=== PATIENT | male | born 1970 | race Caucasian/White ===

== ENCOUNTER 2016-10-30 09:11 | Emergency (ER) | payer OTHER ==
--- NOTE | 2016-10-30 10:19 | UCPHY ---
H & P Patient Type: Established Chief Complaint Nursing Narrative: C/o fever (high 102 F), RIOS, nonproductive cough x 4 days. Time Seen by Provider: 10/30/16 09:57 HPI/ROS: This patient presents with an illness that has been present for approximately 5 days during which time he self tested himself for influenza and strep both of which were negative. Symptoms include fever as high as 102 degrees 4 days ago but the fever persists and is associated with chills and feeling of itchiness and being flushed. Admits to bilateral ear pain, sore throat, minimal nasal congestion and mild cough Which is nonproductive. He has a mild headache and describes pain in his upper body but not particularly so in his neck or his back which is chronically painful. He has had nausea with diminished appetite and 2 days ago he vomited but has not vomited since. He denies abdominal pain and diarrhea. He denies any urinary tract symptoms and has had no rash. He feels intermittently spacey and at 1 time felt that he was hallucinating. At night sometimes he wakes up and feels that he is suffocating but he has not had actual shortness of breath otherwise. No recent travel. 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 REVIEW OF SYSTEMS: Constitutional: Fatigue, malaise, fever Eyes: No complaints ENT: Mild nasal congestion, sore throat, ear pain Respiratory: Nonproductive cough, occasional shortness of breath Cardiac: No actual chest pain Gastrointestinal: Diminished appetite, nausea, vomiting x1 2 days ago, no abdominal pain, no diarrhea Genitourinary: Denies frequency, urgency, dysuria Musculoskeletal: Upper torso pain denies neck pain Skin: No rash Neurological: Mild headache Source: Patient, RN notes reviewed Exam Limitations: No limitations - Personal History Current Tetanus Diphtheria and Acellular Pertussis (TDAP): Yes Tetanus Vaccine Date: within 10 years - Medical/Surgical History Hx Asthma: No Hx Chronic Respiratory Disease: No Hx Diabetes: No Hx Cardiac Disease: No Hx Renal Disease: No Hx Cirrhosis: No Hx Alcoholism: No Hx HIV/AIDS: No Hx Splenectomy or Spleen Trauma: No Other PMH: chronic back pain, HTN, ADHD, R ACL. high cholesterol - Family History Significant Family History: No pertinent family hx - Social History Smoking Status: Never smoked - Physical Exam Exam: GENERAL: Well-appearing, well-nourished and in no acute distress. This patient appears to be acutely ill but nontoxic HEAD: Atraumatic, normocephalic. EYES: Pupils equal round and reactive to light, extraocular movements intact, sclera anicteric, conjunctiva are normal. ENT: TMs normal, nares patent, the pharynx is injected but there is no exudate and no trismus. Moist mucous membranes. NECK: Normal range of motion, supple without lymphadenopathy or JVD. Nontender LUNGS: Breath sounds clear to auscultation bilaterally and equal. No wheezes rales or rhonchi. HEART: Regular rate and rhythm without murmurs, rubs or gallops. ABDOMEN: Soft, nontender, normoactive bowel sounds. No guarding, no rebound. No masses appreciated. EXTREMITIES: Normal range of motion, no pitting or edema. No clubbing or cyanosis. NEUROLOGICAL: Cranial nerves II through XII grossly intact. Normal speech, normal gait. PSYCH: Normal mood, normal affect. SKIN: Warm, dry, normal turgor, no visible rashes or lesions. Constitutional: Initial Vital Signs Temperature (C) 36.6 C 10/30/16 09:27 Heart Rate 92 10/30/16 09:27 Respiratory Rate 16 10/30/16 09:27 Blood Pressure 135/95 H 10/30/16 09:27 O2 Sat (%) 98 10/30/16 09:27 O2 Delivery Mode Room Air Allergies/Adverse Reactions: No Known Allergies Allergy (Verified 10/30/16 09:28) Home Medications: Medication Instructions Recorded Hydrochlorothiazide 04/28/15 Losartan Potassium 04/28/15 Adderall 10 MG (*) 06/07/16 Testosterone Cyp 06/07/16 Adderall 10 MG (*) 10/30/16 Bystolic 10/30/16 Oxycontin 10/30/16 Medical Decision Making - Diagnostics Imaging: A chest x-ray shows no evidence of pneumonia or any other serious abnormality. Differential Diagnosis: Tamiflu is not indicated given the duration of his illness. - Data Points Laboratory Results: Laboratory Results 10/30/16 10:25 10/30/16 10:25 10/30/16 10/30/16 10:25 10:20 WBC 3.25 L 10^3/uL (3.80-9.50) RBC 4.98 10^6/uL (4.40-6.38) Hgb 16.3 g/dL (13.7-17.5) Hct 46.9 % (40.0-51.0) MCV 94.2 fL (81.5-99.8) MCH 32.7 pg (27.9-34.1) MCHC 34.8 g/dL (32.4-36.7) RDW 11.9 % (11.5-15.2) Plt Count 190 10^3/uL (150-400) MPV 9.0 fL (8.7-11.7) Neut % (Auto) 49.0 % (39.3-74.2) Lymph % (Auto) 36.6 % (15.0-45.0) [place] % (Auto) 12.3 % (4.5-13.0) Eos % (Auto) 1.2 % (0.6-7.6) Baso % (Auto) 0.6 % (0.3-1.7) Nucleat RBC Rel Count 0.0 % (0.0-0.2) Absolute Neuts (auto) 1.59 L 10^3/uL (1.70-6.50) Absolute Lymphs (auto) 1.19 10^3/uL (1.00-3.00) Absolute Monos (auto) 0.40 10^3/uL (0.30-0.80) Absolute Eos (auto) 0.04 10^3/uL (0.03-0.40) Absolute Basos (auto) 0.02 10^3/uL (0.02-0.10) Absolute Nucleated RBC 0.00 10^3/uL (0-0.01) Immature Gran % 0.3 % (0.0-1.1) Immature Gran # 0.01 10^3/uL (0.00-0.10) Sodium 141 mEq/L (134-144) Potassium 4.3 mEq/L (3.5-5.2) Chloride 103 mEq/L (97-110) Carbon Dioxide 27 mEq/l (22-31) Anion Gap 11 mEq/L (8-16) BUN 9 mg/dL (7-23) Creatinine 0.9 mg/dL (0.7-1.3) Estimated GFR > 60 Glucose 98 mg/dL (70-100) Calcium 9.1 mg/dL (8.5-10.4) Total Bilirubin 0.6 mg/dL (0.1-1.4) AST 25 IU/L (17-59) ALT 41 IU/L (21-72) Alkaline Phosphatase 51 IU/L (38-126) Total Protein 6.8 g/dL (6.3-8.2) Albumin 3.8 g/dL (3.5-5.0) Influenza Typ A,B (DFA) POSITIVE FOR FLU A H (NEGATIVE) Departure - Departure Disposition: Home, Routine, Self-Care Clinical Impression: Influenza A Condition: Good Instructions: Influenza (ED) Additional Instructions: If your symptoms have not nearly resolved in 3 or 4 days you should be re- evaluated. Keep herself well hydrated but do not force herself to eat. limit your activities. Adult Pain & Fever Control: We recommend Acetaminophen (Tylenol) and Ibuprofen (Motrin, Advil) for pain and fever control. When fever is high or pain severe, both drugs can be used at the same time, but at different intervals. Please note the time differences. Your dose is: Acetaminophen [650]mg every 4 to 6 hours ibuprofen [600]mg every [6] hours with food OR naproxen Sodium (Aleve) [440]mg every 12 hours. Note: do not take Acetaminophen with Hydrocodone (Vicodin, Lortab) or Oxycodone (Percocet). These medications also contain Acetaminophen. No more than 3000 mg of Acetaminophen should be taken in 24 hours (for an adult) . The maximal dose of ibuprofen that it is safe in a 24-hour period is 2400 mg. You may take 400 mg every 4 hours, 600 mg every 6 hours or 800 mg every 8 hours safely. Referrals: Henrik Pendleton DO [Primary Care Provider] - As per Instructions - PQRS PQRS Measurement: Not applicable
[2016-10-30 10:31] LABS: % IMMATURE GRANULYOCYTES 0.3 % (0.0-1.1); ABSOLUTE IMMATURE GRANULOCYTES 0.01 10^3/uL (0.00-0.10); ADD DIFF? NO; ADD MORPH? NO; ADD SCAN? NO; ATYPICAL LYMPHOCYTE FLAG 30 (0-99); FRAGMENT RBC FLAG 0 (0-99); HEMATOCRIT 46.9 % (40.0-51.0); HEMOGLOBIN 16.3 g/dL (13.7-17.5); LEFT SHIFT FLG 0 (0-99); LIPEMIA HEMOLYSIS FLAG 90 (0-99); MEAN CELL HEMOGLOBIN 32.7 pg (27.9-34.1); MEAN CELL HEMOGLOBIN CONCENTR. 34.8 g/dL (32.4-36.7); MEAN CELL VOLUME 94.2 fL (81.5-99.8); PLATELET CLUMPS FLAG 0 (0-99); PLATELET COUNT 190 10^3/uL (150-400); RED BLOOD CELL COUNT 4.98 10^6/uL (4.40-6.38); RED CELL DISTRIBUTION WIDTH 11.9 % (11.5-15.2)
[2016-10-30 10:53] LABS: ALANINE AMINOTRANSFERASE 41 IU/L (21-72); ALBUMIN 3.8 g/dL (3.5-5.0); ALKALINE PHOSPHATASE 51 IU/L (38-126); ANION GAP 11 mEq/L (8-16); ASPARTATE AMINOTRANSFERASE 25 IU/L (17-59); BILIRUBIN,TOTAL 0.6 mg/dL (0.1-1.4); CALCIUM 9.1 mg/dL (8.5-10.4); CARBON DIOXIDE 27 mEq/l (22-31); CHLORIDE 103 mEq/L (97-110); CREATININE 0.9 mg/dL (0.7-1.3); GLOMERULAR FILTRATION RATE > 60; GLUCOSE 98 mg/dL (70-100); POTASSIUM 4.3 mEq/L (3.5-5.2); SODIUM 141 mEq/L (134-144); TOTAL PROTEIN 6.8 g/dL (6.3-8.2)
--- NOTE | 2016-10-30 11:02 | DX ---
PA and Lateral Chest History: Fever and cough for 5 days. Comparison: PA and lateral chest September 30, 2015. Findings: There is mild peribronchial thickening without focal consolidation. There is no pneumothora x or pleural effusion. The heart and pulmonary vasculature are normal. The bones are normal. Impression: Mild peribronchial thickening suggesting airways disease/bronchitis.
[2016-10-30 11:35] VITALS: BP 155/100; PULSE 86; RESP 18; TEMP 97.9; O2SAT 96
== END 2016-10-30 11:28 | disposition home or self-care (01) ==
LOC: CED 09:15
DX: J09.X2 Influenza due to identified novel influenza A virus with other respiratory manifestations (principal); I10 Essential (primary) hypertension
CPT/HCPCS: 71020-PO; 80053-PO; 85025-PO; 87400-PO; 99214-PO; G0463-PO

== ENCOUNTER 2016-11-08 08:15 | Day surgery (SDC) | payer OTHER ==
[2016-11-08] MEDS ORDERED: MIDAZOLAM 2 MG/2 ML VIAL ONE (09:00)
[2016-11-08] MEDS ORDERED: TRIAMCINOLONE ACETONIDE 40 MG/ML VIAL ONE (09:00)
[2016-11-08] MEDS ORDERED: DEXAMETHASONE 10 MG/ML VIAL ONE (09:00)
[2016-11-08] MEDS ORDERED: MIDAZOLAM 2 MG/2 ML VIAL IVP ONE (09:00)
[2016-11-08] MEDS ORDERED: NA BICARBONATE 50 MEQ/50 ML VIAL ONE (09:01)
[2016-11-08] MEDS ORDERED: BUPIVACAINE 0.25% 10 ML SDV ONE (09:01)
[2016-11-08] MEDS ORDERED: fentaNYL 100 MCG/2 ML INJ ONE (09:01)
[2016-11-08] MEDS ORDERED: LIDOCAINE 1% 30 ML SDV ONE (09:02)
[2016-11-08] MEDS ORDERED: IOPAMIDOL (ISOVUE-M 200) 20 ML VIAL IV ONE (09:02)
[2016-11-08] MEDS ORDERED: LR 1,000 ML IV SCH (09:30)
--- NOTE | 2016-11-08 15:54 | GPN ---
[f rep st] PROCEDURE NOTE DATE OF PROCEDURE: 11/08/2016 TIME: 9 a.m. HISTORY OF PRESENT ILLNESS: The patient presents for possible bilateral L4-5 transforaminal epidural injections. His last set of injections was done in June by Dr. Salde Lucas, and provided "meka culous" relief, including complete resolution of the pain that radiates into his testicle. Today, he would like to try bilateral injections. I have explained to him that this involves dividing the tot al steroid dose between the 2 sides. He understands and would like to proceed, and will use this inj ection to evaluate whether it is worth doing the left-sided injections in the future. His pain radia radha somewhat through to the left side, but is primarily right-sided. He is not taking any blood thin ners or antibiotics, and denies allergies to shellfish, latex, contrast dye, and iodine. PROCEDURE: Bilateral L4-5 transforaminal epidural steroid injections. DIAGNOSIS: Lumbar radiculopathy. SITE: Low back. PROVIDER: Rubi Arredondo MD. ANESTHESIA: Local with Versed 4 mg and fentanyl 100 mcg IV. COMPLICATIONS: None. ESTIMATED BLOOD LOSS: Minimal. PREPROCEDURE CONSENT: The preprocedure consent was obtained after the risks, benefits, and alternati ves of the procedure were explained to the patient. The risks include, but are not limited to, nerve injury, spinal cord injury, paralysis, brain injury, stroke, muscle injury, infection, adverse medic ation effects, bleeding, increased pain, , and any other unforeseen consequences. The patient a greed and signed the consent for the procedure. PROCEDURE VERIFICATION AND TIME-OUT: Verbal verification of patient, site, and procedure was done. All present were in agreement. Please see nursing notes for time of time-out. PROCEDURE NOTE: The patient was identified and placed in a prone position. Standard monitors were p ut in place. A right-sided oblique fluoroscopic view was obtained with the superior articular proces s of L5 aligned with the pedicle of L5. The skin over the intended target site at the 6 o'clock posi tion of the L4 pedicle was marked and prepped in the usual sterile fashion with ChloraPrep and a fene strated drape. Then, using sterile techniques, 2 mL of subcutaneous 1% lidocaine was instilled into the superficial soft tissue for local anesthesia over the above-stated region. The tip of the 22-gau ge 5-inch spinal needle was advanced toward the 6 o'clock position under intermittent biplanar fluoro scopic guidance toward the anterior epidural space of the right L4 foramen. Confirmation of proper n eedle position was made with AP oblique and lateral fluoroscopic views. After a negative aspiration for blood and cerebrospinal fluid, 0.5 mL of nonionic contrast dye was injected. Fluoroscopic imagin g revealed a clear outline of the L4 spinal nerve with proximal spread of agent through the neural fo ramen into the epidural space without vascular uptake. The patient did report a paresthesia concorda nt with his typical painful area. Subsequently, 3 mL of injectate, including 40 mg triamcinolone, 0. 5 mL of 1% lidocaine, and 1.5 mL of preservative-free normal saline was administered slowly after neg ative aspiration. The spinal needle was re-styletted and removed, and the paresthesia resolved. The exact same procedure was then repeated on the opposite side, and the patient again felt a transie nt paresthesia concordant with his painful area. Vital signs were stable throughout the procedure. The patient tolerated the procedure well and was m onitored in the recovery room with no apparent complications. He was discharged home in good conditi on with a ride. He experienced no effects from sedation and was instructed not to drive, operate [email or web address] machinery, or make any life-altering decisions today. He was instructed to call our clinic with n onurgent concerns or 911 in an emergency. In particular, he was taught that new weakness or numbness , changes in bowel or bladder control, fever, and swelling or redness over the injection site are all urgent concerns that would warrant call 911 or going to an emergency care facility. He verbalized u nderstand and was discharged home with postprocedure instructions. ASSESSMENT AND PLAN: Bilateral L4-L5 transforaminal epidural steroid injections done today without c omplications with the use of a 5-inch spinal needle. The patient will return to our clinic for follo wup, and we will consider repeating the injections in 3 months. /[id number]/MODL
--- NOTE | 2016-11-08 16:25 | DX ---
Fluoroscopy provided for lumbar spine injection 10:32 a.m. Indication: Pain. Guidance provided for epidural steroid injection. Fluoroscopy time: 135.3 seconds. Dose: 55.32 mGy Technique: Four intraoperative spot films were obtained. Findings: Bilateral L4-L5 levels were selectively injected. Impression: Fluoroscopy provided for epidural injection.
== END 2016-11-08 11:31 | disposition home or self-care (01) ==
LOC: FSGY 08:15
PROVIDERS: ATTEND Anesthesiology
PROC: 3E0S33Z Introduction of Anti-inflammatory into Epidural Space, Percutaneous Approach (ICD-10-PCS; principal; 2016-11-08 09:00)
PROC: 3E0S3BZ Introduction of Anesthetic Agent into Epidural Space, Percutaneous Approach (ICD-10-PCS; principal; 2016-11-08 09:00)
DX: M51.16 Intervertebral disc disorders with radiculopathy, lumbar region (principal); M53.3 Sacrococcygeal disorders, not elsewhere classified; F41.8 Other specified anxiety disorders; M79.1 Myalgia
CPT/HCPCS: J2250; J3010; J3301; Q9966

== ENCOUNTER → 2017-01-25 | Outpatient (CLI) | payer OTHER | LOC: CIMAGING 14:35 | PROVIDERS: ATTEND Clinical Nurse Specialist | DX: M51.36 Other intervertebral disc degeneration, lumbar region (principal) | CPT/HCPCS: 72100-PO ==

== ENCOUNTER → 2017-10-27 | Outpatient (CLI) | payer OTHER | LOC: FIMAGING 15:06 | PROVIDERS: ATTEND Physician Assistant Surgical | DX: M47.896 Other spondylosis, lumbar region (principal); M99.73 Connective tissue and disc stenosis of intervertebral foramina of lumbar region; M48.061 Spinal stenosis, lumbar region without neurogenic claudication ==

== ENCOUNTER 2018-02-26 09:19 | Inpatient (IN) | payer OTHER ==
[2018-02-26] MEDS ORDERED: ACETAMINOPHEN 500 MG TAB PO ONE (09:35)
[2018-02-26] MEDS ORDERED: ceFAZolin 2 GM/SWFI 2 GM/20 ML SYR IVP ONE (09:35)
[2018-02-26] MEDS ORDERED: morphINE SR 15 MG TAB PO ONE (09:35)
[2018-02-26] MEDS ORDERED: morphINE PF 0.2 MG in SYRINGE INTRATHECAL 1 SYR IT ONE (09:35)
[2018-02-26] MEDS ORDERED: GABAPENTIN 300 MG CAP PO ONE (09:35)
[2018-02-26] MEDS ORDERED: THROMBIN (BOVINE) 20,000 UNIT VIAL TP ONE (09:43)
[2018-02-26] MEDS ORDERED: CHLORHEXIDINE GLUC HIBICLENS 118 ML BTL TP ONE (09:43)
[2018-02-26] MEDS ORDERED: BACITRACIN 50,000 UNITS/10 ML SYR IRR ONE ×2 (09:44→14:41)
[2018-02-26] MEDS ORDERED: BUPIVACAINE 0.25% 30 ML SDV ONE (09:44)
[2018-02-26] MEDS ORDERED: EPINEPHrine 1 MG/ML INJ ONE (09:44)
[2018-02-26] MEDS ORDERED: LR 1,000 ML IV ONE (09:45)
--- NOTE | 2018-02-26 09:51 | PDANEPAE ---
ANE History of Present Illness 47 yo male with longstanding low back and leg pain for L 4/5 TLIF. ANE Past Medical History - Cardiovascular History Hx Hypertension: Yes Hx Arrhythmias: No Hx Chest Pain: No Hx Coronary Artery / Peripheral Vascular Disease: No Hx CHF / Valvular Disease: No Hx Palpitations: No Cardiovascular History Comment: HYPERLIPIDEMIA - well-controlled with meds - Pulmonary History Hx COPD: No Hx Asthma/Reactive Airway Disease: No Hx Recent Upper Respiratory Infection: No Hx Oxygen in Use at Home: No Hx Sleep Apnea: No Sleep Apnea Screening Result - Last Documented: Negative Pulmonary History Comment: exercise induced asthma - Neurologic History Hx Cerebrovascular Accident: No Hx Seizures: No Hx Dementia: No Neurologic History Comment: MIGRAINE HEADACHES OCCAS - Endocrine History Hx Diabetes: No Hypothyroid: No Hyperthyroid: No Obesity: moderate - Renal History Hx Renal Disorders: No - Liver History Hx Hepatic Disorders: No - Neurological & Psychiatric Hx Hx Neurological and Psychiatric Disorders: Yes Neurological / Psychiatric History Comment: ANXIETY, DDD lumbar,myofascial pain , ADHD - Cancer History Hx Cancer: No - Congenital Disorder History Hx Congenital Disorders: No - GI History Hx Gastrointestinal Disorders: No - Other Health History Other Health History: none - Chronic Pain History Chronic Pain: No - Surgical History Prior Surgeries: SHANTI -2015,R ACL 2007. TONSILLECTOMY. PILONIDAL CYST 2006. back injections, acl reconstruction ANE Review of Systems Review of Systems: - Exercise capacity METS (RN): 5 METS - Systems Muscolosketal: Reports: back pain, other (back pain now radiates into R testicle ) ANE Patient History - Allergies Allergies/Adverse Reactions: tapentadol [From Nucynta] Allergy (Verified 02/05/18 12:33) Itching - Home Medications Home Medications: Hydrochlorothiazide [HCTZ (*)] 25 mg PO DAILY 04/28/15 [Last Taken 06/27/16] Losartan Potassium [Cozaar 50 mg (*)] 50 mg PO DAILY 04/28/15 [Last Taken ] Testosterone IM [Testosterone 100mg/ml IM inj (*)] 250 mg IM Q14D 06/07/16 [ Last Taken 06/23/16] Amphet Asp and D/Amphet [Adderall 10 MG (*)] 10 mg PO TID@08,12,16 10/30/16 [ Last Taken Unknown] Nebivolol HCl [Bystolic 5 mg (*)] 5 mg PO DAILY 10/30/16 [Last Taken Unknown] oxyCODONE MYRISTATE [Xtampza ER] 18 mg PO BID 10/30/16 [Last Taken Unknown] valACYclovir [Valtrex (*)] 500 - 1,000 mg PO DAILY 11/07/16 [Last Taken Unknown] oxyCODONE IR [Oxycodone Ir (*)] 20 mg PO QID PRN 05/04/17 [Last Taken Unknown] Atorvastatin Calcium [Lipitor 40 mg (*)] 40 mg PO DAILY 02/05/18 [Last Taken Unknown] Cetirizine [ZyrTEC 10 mg (*)] 10 mg PO DAILY 02/05/18 [Last Taken Unknown] - NPO status NPO Since - Liquids (Time): 08:00 (sips of water with meds) - Anes Hx Anes Hx: no prior problems - Smoking Hx Smoking Status: Never smoked Marijuana use: Yes - Alcohol Use Alcohol Use: Occasionally - Family Anes Hx Family Anes Hx: neg - N/A Family Hx Anesthesia Complications: none ANE Labs/Vital Signs - Labs - CBC HGB: 17 HCT: 51 Platelet Count: 240 - Labs - BMP Sodium: 139 Potassium: 4.2 Glucose: 13 BUN: 1.1 Creatinine: 107 - Vital Signs Vital Signs: reviewed preoperatively; see RN documention for details Height: 187.96 cm Weight: 111.13 kg ANE Physical Exam - Airway Neck exam: FROM Mallampati Score: Class 2 Mouth exam: normal dental/mouth exam - Pulmonary Pulmonary: clear to auscultation - Cardiovascular Cardiovascular: regular rate and rhythym - ASA Status ASA Status: III ANE Anesthesia Plan Anesthesia Plan: general endotracheal anesthesia Lines/Monitors: additional IV
[2018-02-26] MEDS ORDERED: DIAZEPAM 10 MG TAB PO ONE (09:55)
[2018-02-26] MEDS ORDERED: DIAZEPAM 5 MG TAB ONE (10:13)
--- NOTE | 2018-02-26 10:15 | PDHPUP ---
History & Physical Update H&P update statement: This history and physical update is based on an assessment of the patient which was completed after admission or registration (within 24 hours), but prior to the surgery/procedure. H&P update: H&P reviewed & patient examined, no change in patient's condition since H&P completed (Consents signed and site marked. All questions answered.)
[2018-02-26] MEDS ORDERED: LIDOCAINE 2% 5 ML SDV ONE (10:56)
[2018-02-26] MEDS ORDERED: DEXAMETHASONE 4 MG/ML VIAL ONE (10:56)
[2018-02-26] MEDS ORDERED: ROCURONIUM 50 MG/5 ML VIAL ONE ×2 (10:56→11:45)
[2018-02-26] MEDS ORDERED: PROPOFOL/EMULSION 500 MG/50 ML BOTTLE IV ONE ×6 (10:56→14:41)
[2018-02-26] MEDS ORDERED: fentaNYL 100 MCG/2 ML INJ ONE ×4 (10:56→16:36)
[2018-02-26] MEDS: DEXMEDETOMIDINE HCL 400 MCG in NS 100 ML IV SCH ×3 (11:20→23:15)
[2018-02-26] MEDS ORDERED: ENALAPRILAT DIHYDRATE 1.25 MG/ML VIAL ONE (12:01)
[2018-02-26] MEDS ORDERED: ALBUMIN 5% 250 ML BOTTLE IV ONE ×2 (13:40→14:41)
[2018-02-26] MEDS ORDERED: morphINE PF 5 MG/10 ML INJ ONE (13:42)
[2018-02-26] MEDS ORDERED: THROMBIN (BOVINE) 5,000 UNIT VIAL TP ONE ×2 (13:45→14:40)
[2018-02-26] MEDS ORDERED: SURGIFLO MATRIX KIT WITH THROMBIN 8 ML TP ONE (13:56)
[2018-02-26] MEDS ORDERED: ceFAZolin 1 GM VIAL ONE (15:06)
[2018-02-26] MEDS ORDERED: ONDANSETRON 4 MG/2 ML VIAL IVP PRN (15:22)
[2018-02-26] MEDS ORDERED: DIAZEPAM 5 MG/ML 1 ML SYR IVP PRN (15:22)
[2018-02-26] MEDS ORDERED: NALOXONE HCL 0.4 MG/ML INJ IVP PRN (15:22)
[2018-02-26] MEDS ORDERED: fentaNYL 100 MCG/2 ML INJ IVP PRN (15:22)
[2018-02-26] MEDS ORDERED: ALBUTEROL 3 ML DEYVIAL IH PRN (15:22)
[2018-02-26] MEDS ORDERED: PROMETHAZINE HCL 25 MG/ML INJ IVP PRN (15:22)
[2018-02-26] MEDS ORDERED: LR 500 ML IV PRN (15:22)
[2018-02-26] MEDS ORDERED: BACITRACIN ZINC 14.2 GM OINTTUBE TP ONE (15:35)
[2018-02-26] MEDS ORDERED: oxyCODONE IR 5 MG TAB PO PRN (16:01)
[2018-02-26] MEDS ORDERED: POLYETHYLENE GLYCOL 3350 17 GM PKT PO PRN (16:03)
[2018-02-26] MEDS ORDERED: diphenhydrAMINE 25 MG CAP PO PRN (16:03)
[2018-02-26] MEDS ORDERED: PHARMACY PAIN CONSULT 1 EA MISC PRN (16:03)
[2018-02-26] MEDS ORDERED: BISACODYL 10 MG SUPP PR PRN (16:03)
[2018-02-26] MEDS ORDERED: NS W/ 20 KCl/L 1,000 ML IV SCH (16:15)
--- NOTE | 2018-02-26 16:17 | POSTOPPROG ---
Post Op Note Date of Operation: 02/26/18 Surgeon: Corrie Tomlin Car Pusher: Monika Tomlin PA-C Anesthesiologist: Ivy Anesthesia: GET(General Endotracheal) Pre-op Diagnosis: lumbar stenosis Post-op Diagnosis: same Indication: nerve compression Procedure: L3-5 laminectomy, L45 TLIF and L45 PSF Findings: nerve compression Inf/Abcess present in the surg proc area at time of surgery?: No Depth: Organ Space EBL: 500-1000 Complications: CSF leak repaired primarily Drains: Henri Malin Specimen(s): none PA Addendum - Addendum .: S: Pt in PACU, c/o RN of muscle spasm O: Sleeping but awakens to voice/stim NAD VSS MAEx4 Motor 5/5 BUE/BLE Incision dressed cdi JPx1 Bruno in A: 47 yo M s/p L3-5 laminectomy, L45 TLIF and L45 PSF P: CSF leak: Flat in bed, ok for 1 pillow under head, pillows under knees. No reverse trend. Raise HOB Sunday AM TEDs, SCDs, lovenox POD#1 Brace to be worn once he is OOB/ambulatory Post op xrays once ambulatory Check coags now and labs in AM - coags and hh look ok post op. Maintain bruno due to immobility TO SDU for precedex/pain control pharmacy pain cs ordered - home pain meds increased Call NS with any questions or neuro changes D/w Dr Abreu
[2018-02-26] MEDS ORDERED: NS 1,000 ML IV SCH (16:30)
--- NOTE | 2018-02-26 16:35 | GOP ---
[f rep st] OPERATIVE REPORT DATE OF OPERATION: 02/26/2018 SURGEON: Lee Abreu MD TELEVISION PRESENTER: Corrie Tomlin PA-C. PREOPERATIVE DIAGNOSIS: 1. L3-4 spinal stenosis with spondylosis. 2. L4-5 spondylolisthesis with severe spinal stenosis. 3. Bilateral foraminal stenosis. 4. Lower extremity radiculopathy. 5. Treatment refractory to nonoperative intervention. POSTOPERATIVE DIAGNOSIS: 1. L3-4 spinal stenosis with spondylosis. 2. L4-5 spondylolisthesis with severe spinal stenosis. 3. Bilateral foraminal stenosis. 4. Lower extremity radiculopathy. 5. Treatment refractory to nonoperative intervention. PROCEDURE PERFORMED: 1. Posterior arthrodesis with approach to L3, L4, and L5. 2. Decompressive laminectomy with bilateral medial facetectomies, L3-L4 and L4- L5. 3. Left L4-5 foraminotomy. 4. Right-sided L4-5 transforaminal lumbar interbody fusion with a 7 x 28 mm titanium PEEK cage filled with morselized autograft and allograft. 5. Posterolateral fusion bilaterally with pedicle screw placement L4 and L5 from the [employer] Solera 4.75 System. 6. Left-sided L4-5 posterior fusion with morselized autograft and allograft. 7. Use of intraoperative 3D Stealth navigation. 8. Use of intraoperative fluoroscopy, less than 1-our physician time. 9. Use of neuromonitoring. 10. Use of the operating microscope. 11. Injection of preservative-free intrathecal narcotics. COMPLICATIONS: A small dural tear was achieved at the L3-L4 site, which was repaired primarily with a 6-0 Prolene suture. FINDINGS: the dura was extremely adherent to the tissues SPECIMENS: None. INDICATIONS: The patient is a 47-year-old, who unfortunately suffered a long- standing history of low back pain with lower extremity radiculopathy and claudication. He eventually failed nonoperative management. After discussion of the risks, benefits, and treatment alternatives and after failing nonoperative intervention, we decided to proceed forth with surgery as described above. DESCRIPTION OF PROCEDURE: Patient brought to the operating theater, and underwent general endotracheal anesthesia without complications. The Venodynes , FARHEEN hose and appropriate lines placed by Anesthesia. He was flipped prone on the Henri table. All bony prominences were inspected and padded. The lower lumbar region was then prepped and draped in the usual sterile surgical fashion. A time-out was completed per protocol and the patient received antibiotics within 1-hour of incision. Using lateral fluoroscopy and a spinal needle, we picked our entry point at the L3 through L5 levels. This was marked in the midline. The incision was infiltrated with Marcaine with epinephrine and taken down with the scalpel blade. Using the monopolar, the incision was taken down the midline through the lumbodorsal fascia. A subperiosteal dissection was carried out to the transverse process bilaterally at L4 and L5. Care was taken to preserve the bilateral L3-4 facet joint. We also completed a subperiosteal dissection, bilaterally, to the medial facet joints of L3-L4. Deep retractors were placed to maintain our exposure. We confirmed our level using lateral fluoroscopy. We attached the 3D Stealth navigation clamp to the spinous process of L4 and completed a 3D Stealth navigation spin. Using 3D Stealth navigation, we placed the towboat pilot holes for the bilateral pedicle screws at L4 and L5. All holes were manually palpated with no evidence of any cortical breaches. We then tapped and placed 6.5 x 55 mm screws bilaterally in L4 and 6.5 x 50 mm screws bilaterally in L5 from the [employer] Solera 4.75 System. Another 3D Stealth navigation spin demonstrated good placement of the hardware. At this point, the microscope was brought into field to assist with microscopic dissection and maintain illumination and magnification using a combination of bur tip on the drill bit and Kerrison punch as well. We completed a decompressive laminectomy with bilateral medial facetectomies at L4- L5. The dura was noted to be extremely adherent to the epidural space including the ligamentous tissues. This took a long time, greater than 50% more challenging than the average surgery secondary to the patient's adherence and fibrotic nature of the tissues. We then completed L4-5 foraminotomy on the left side. We then moved up to the right-side of the L3-L4 site level. We started a right-sided L3-4 hemilaminotomy with a medial facetectomy and lateral recess decompression. The patient's tissues were noted to be extremely adherent to this level as well. While trying to tease them off, we achieved a dural tear. This extended across the midline and therefore I had to complete a full laminectomy at the L3-4 level to be able to close it primarily. I was then able to finally close this primarily with 6-0 Prolene suture in a running manner. It appeared to be water tight at that point. I then moved down to the right side L4-5 level. We completed an aggressive facetectomy. We distracted the L4-5 disk space and completed a right-sided L4-5 diskectomy. We prepared the cartilaginous plates and measured the interbody space. We then placed a 7 x 28 mm titanium PEEK elevate cage filled with morselized autograft and allograft anteriorly and toward the midline. We packed additional morcellized autograft in the disk space for interbody fusion. We let down the distraction and decorticated the left side between L4-5 for the posterolateral fusion. The wound was irrigated copiously with bacitracin irrigation. We placed 2- lordotic rods in the heads of the screws between L4 and L5 and secured them down with cap screws, which were tightened to the printed circuit board drafter's setting. A drain was left in the subfascial space. We injected preservative-free intrathecal narcotics. We placed morselized autograft, allograft on the left side between L4-5 for the posterolateral fusion. The wound was then closed in multiple layers of Vicryl sutures in the deep layers and a running nylon stitch for the skin. The patient's wounds were dressed sterilely. He was then flipped supine onto the transport cart, where he was still asleep at the time of this dictation. There were no other complications except for that as noted above. /[id number]/MODL MTDD
[2018-02-26] MEDS ORDERED: DIAZEPAM 5 MG/ML 1 ML SYR ONE (16:43)
[2018-02-26 16:52] LABS: INR 1.02 (0.83-1.16); PROTIME(PATIENT) 13.6 SEC (12.0-15.0)
--- NOTE | 2018-02-26 17:19 | POSTANESTH ---
Post Anesthetic Evaluation Cardiovascular Status: Normal, Stable Respiratory Status: Normal, Stable Level of Consciousness/Mental Status: Can Participate in Eval, Moderately Sleepy Pain Control: Adequate, Prn Tx Ordered Nausea/Vomiting Control: Adequate, Prn Tx Ordered Complications Possibly Related to Anesthesia: None Noted
[2018-02-26] MEDS: HYDROmorphONE/DILAUDID 1 MG/ML INJ IVP PRN ×2 (18:36→22:08)
[2018-02-26] MEDS: SENNOSIDES/DOCUSATE SODIUM TAB PO SCH (20:55)
[2018-02-26] MEDS: oxyCODONE IR 5 MG TAB PO PRN (20:56)
[2018-02-26] MEDS: ACETAMINOPHEN 500 MG TAB PO SCH (20:56)
[2018-02-26] MEDS: FAMOTIDINE 20 MG TAB PO SCH (20:57)
[2018-02-26] MEDS: METHOCARBAMOL 750 MG TAB PO PRN (20:57)
[2018-02-26] MEDS: POLYETHYLENE GLYCOL 3350 17 GM PKT PO SCH (21:02)
[2018-02-26] MEDS: Oxycodone Myristate [Xtampza Er] 18 MG PO SCH (21:02)
[2018-02-26] MEDS: ceFAZolin 2 GM in NS 100 ML IV SCH (21:53)
[2018-02-26] MEDS ORDERED: ceFAZolin 2 GM/DEXTROSE 100 ML IV SCH (22:00)
[2018-02-27] MEDS: oxyCODONE IR 5 MG TAB PO PRN ×2 (04:18→07:46)
[2018-02-27 05:08] LABS: PLATELET COUNT 187 10^3/uL (150-400)
[2018-02-27] MEDS: METHOCARBAMOL 750 MG TAB PO PRN (05:09)
[2018-02-27] MEDS: HYDROmorphONE/DILAUDID 1 MG/ML INJ IVP PRN ×3 (05:09→21:38)
[2018-02-27] MEDS: ACETAMINOPHEN 500 MG TAB PO SCH ×3 (05:09→20:44)
[2018-02-27 05:35] LABS: INR 1.03 (0.83-1.16); PROTIME(PATIENT) 13.7 SEC (12.0-15.0)
--- NOTE | 2018-02-27 05:41 | PDMN ---
Medical Necessity Medical necessity: Pt meets INPT criteria [place] [facility] [place] (L3 -5 laminectomy, L45 TLIF and L45 PSF; IPO surgery).
[2018-02-27] MEDS: DEXMEDETOMIDINE HCL 400 MCG in NS 100 ML IV SCH ×3 (06:11→16:43)
--- NOTE | 2018-02-27 06:59 | NEUSURGPN ---
Date of Surgery: 02/26/18 Post Op Day: 1 Assessment/Plan: Assessment: 47 yo M s/p L3-5 laminectomy, L4/5 TLIF and L4/5 PSF POD #1 Plan: -CSF leak: Flat in bed, ok for 1 pillow under head, pillows under knees. No reverse trend. Raise HOB Sunday AM -TEDs, SCDs, lovenox to start POD#1 -Brace to be worn once he is OOB/ambulatory -Post op xrays once ambulatory -follow labs-look good this am -Maintain bruno due to immobility -SDU for precedex/pain control -pharmacy pain cs ordered - home pain meds increased already -Call NS with any questions or neuro changes -D/w Dr Abreu Subjective: Awake and alert. NAD. Eating/drinking and voiding. No f/c/n/v/d. Objective: AAO x 3, PERRLA/EOMI no droop NAD, AFVSS MAEx4 Motor 5/5 BUE/BLE Incision dressed cdi JPx1 Bruno in Neuro Check Frequency: per routine Urinary Catheter in Place: Yes Urinary Catheter Indication: Other (Use Comment) (immobile with strict bed rest) Catheter Insertion Date: 02/26/18 - Physician Discussed Patient with Dr.: Abreu Neurosurgery Physical Exam - Vitals, I&O, Labs I and O 02/26/18 02/27/18 02/28/18 05:59 05:59 05:59 Intake Total 5050 871 Output Total 5605 285 Balance -555 586 Weight 111.13 kg Intake: Oral (ml) 1600 500 IV Intake (ml) 3450 IV Infused (ml) 371 Dexmedetomidine HCl 400 271 mcg In Ns 100 ml @ Per Protocol IV CONT AMINATA Rx#: [id number] ceFAZolin 2 gm In Ns 100 100 ml @ 200 mls/hr IV Q8H [facility] Rx#:[id number] Output: Urine (ml) 3800 250 Catheter 3800 250 Estimated Blood Loss (ml) 800 VANESSA Drain Output (ml) 1005 35 Back Henri Malin 1005 35 Other: Intake Quantity Yes Sufficient Vital Signs Temp Pulse Resp BP Pulse Ox 36.6 C 80 12 136/77 H 97 02/27/18 04:00 02/27/18 06:00 02/27/18 06:00 02/27/18 06:00 02/27/18 06:00 Laboratory Results 02/27/18 04:56 02/27/18 04:56 ICD10 Worksheet Patient Problems: Problems Problem Status Onset Arthrodesis status Acute Inadvertent durotomy Acute Lumbar radicular pain Acute Lumbar stenosis Acute - ICD10 Problem Qualifiers (1) Lumbar stenosis (2) Lumbar radicular pain (3) Arthrodesis status (4) Inadvertent durotomy
[2018-02-27] MEDS: ATORVASTATIN CALCIUM 40 MG TAB PO SCH (07:45)
[2018-02-27] MEDS: SENNOSIDES/DOCUSATE SODIUM TAB PO SCH ×2 (07:45→20:44)
[2018-02-27] MEDS: CETIRIZINE 10 MG TAB PO SCH (07:46)
[2018-02-27] MEDS: HYDROCHLOROTHIAZIDE 25 MG TAB PO SCH (07:47)
[2018-02-27] MEDS: LOSARTAN POTASSIUM 50 MG TAB PO SCH (07:47)
[2018-02-27] MEDS: FAMOTIDINE 20 MG TAB PO SCH ×2 (07:48→20:44)
[2018-02-27] MEDS: NEBIVOLOL HCL 5 MG TAB PO SCH (07:48)
[2018-02-27] MEDS ORDERED: ceFAZolin 2 GM in D5W 100 ML IV ONE (08:30)
[2018-02-27] MEDS: ceFAZolin 2 GM in NS 100 ML IV SCH (08:31)
[2018-02-27] MEDS: Oxycodone Myristate [Xtampza Er] 18 MG PO SCH (08:32)
[2018-02-27] MEDS: valACYclovir 500 MG TAB PO SCH (09:44)
[2018-02-27] MEDS: POLYETHYLENE GLYCOL 3350 17 GM PKT PO SCH ×3 (09:44→20:46)
--- NOTE | 2018-02-27 11:30 | ASMTCASEMG ---
Living Arrangements What is your living Answers: With Spouse arrangement? Who do you live with? Type Of Residence What kind of residence do Answers: House you live in? Discharge Plan Comments Coordination Status Comments Notes: Patient is a 47yo male who was admitted for L3/5 laminectomy, L4/5 TLIF and L4/5 PSF. 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 PT/OT evals ordered. D/C plan TBD. CM will follow. Date Signed: 02/27/2018 11:29 AM Electronically Signed By:Valentina Boateng LCSW
[2018-02-27] MEDS: METHOCARBAMOL 750 MG TAB PO SCH ×3 (11:35→20:44)
--- NOTE | 2018-02-27 12:42 | GCON ---
[f rep st] CONSULTATION CRITICAL CARE CONSULTATION DATE OF CONSULTATION: 02/27/2018 HISTORY OF PRESENT ILLNESS: This patient is a 47-year-old male with a history of lumbar degenerative disk disease, who was having difficulty with significant pain and underwent an L3 to 5 laminectomy w ith TLIF and posterior fusion without difficulty, though the case was complicated by a CSF leak. He has had considerable pain in the past and has very high pain tolerance, but is apparently well contro lled currently on a Precedex drip. REVIEW OF SYSTEMS: Otherwise negative. PAST MEDICAL HISTORY: Includes: 1. Hypertension. 2. Anxiety. 3. Hyperlipidemia. 4. Herpes simplex problem. PAST SURGICAL HISTORY: None. SOCIAL HISTORY: He is a nonsmoker. No significant alcohol. FAMILY HISTORY: Noncontributory. MEDICATIONS: Medications as an outpatient include Xanax, oxycodone, Xtampza, Adderall, atorvastatin, Bystolic, hydrochlorothiazide, losartan, testosterone, trazodone, valacyclovir. PHYSICAL EXAMINATION: VITAL SIGNS: Blood pressure was 136/77, pulse of 89, respirations 18, saturat ion of 98% on room air, and afebrile. GENERAL: He was awake and alert, in no apparent distress and able to speak in full sentences without using accessory muscles for breathing. He was obese. HEENT: Pupils were equally round and reactive to light. Nonicteric and noninjected. Mucous membranes are moist, without erythema or exudate. NECK: Supple, without adenopathy or jugular vein distention. LUNGS: Breath sounds were clear to auscultation bilaterally, without wheezes, rubs or rales. HEART: Regular rate and rhythm, without murmurs, rubs, or gallops. ABDOMEN: Bowel tones were hypoactive, but abdomen was otherwise soft, nondistended, and nontender. EXTREMITIES: No clubbing, cyanosis, o r edema. NEUROLOGICAL: Exam was nonfocal, cranial nerves and deep tendon reflexes. LABORATORY DATA: Includes white count 9.28, hematocrit 37.8, platelets 187. Normal basic metabolic panel. ASSESSMENT/PLAN: 1. Status post back surgery. Pain control seems to be well under control as long as he is on Preced ex. My anticipation is that his needs will diminish over time. No additional drugs are required, I believe. 2. Central spinal fluid leak. [facility]. Seems to be stable at this time. 3. Hypertension. His blood pressure is a little soft at the moment and will just have to watch that closely and then reorder his medications as needed. /[id number]/MODL
[2018-02-27] MEDS: oxyCODONE IR 15 MG TAB PO PRN ×2 (13:54→19:55)
[2018-02-27] MEDS: LACTULOSE 20 GM/30 ML UDCUP PO PRN (15:11)
[2018-02-27] MEDS: ENOXAPARIN 40 MG/0.4 ML SYR SC SCH (16:43)
[2018-02-27] MEDS: DEXMEDETOMIDINE HCL 1,000 MCG in NS 250 ML IV SCH (21:22)
[2018-02-27] MEDS: DIAZEPAM 5 MG TAB PO PRN (21:31)
[2018-02-27] MEDS: PROMETHAZINE HCL 25 MG/ML INJ IVP PRN (21:55)
[2018-02-28] MEDS: oxyCODONE IR 15 MG TAB PO PRN ×4 (01:40→20:13)
[2018-02-28] MEDS: HYDROmorphONE/DILAUDID 1 MG/ML INJ IVP PRN ×7 (01:41→19:15)
[2018-02-28] MEDS: DEXMEDETOMIDINE HCL 1,000 MCG in NS 250 ML IV SCH ×3 (04:06→20:32)
[2018-02-28] MEDS: DIAZEPAM 5 MG TAB PO PRN ×3 (04:09→18:25)
[2018-02-28] MEDS: ACETAMINOPHEN 500 MG TAB PO SCH ×3 (05:50→20:13)
[2018-02-28] MEDS: METHOCARBAMOL 750 MG TAB PO SCH ×4 (05:50→20:12)
--- NOTE | 2018-02-28 07:42 | NEUSURGPN ---
Assessment/Plan: Assessment: 47 yo M s/p L3-5 laminectomy, L4/5 TLIF and L4/5 PSF POD #2 Plan: -CSF leak: Flat in bed, ok for 1 pillow under head, pillows under knees. No reverse trend. Raise HOB Sunday AM -TEDs, SCDs, lovenox -Brace to be worn once he is OOB/ambulatory -Post op xrays once ambulatory -Maintain bruno due to immobility -SDU for precedex/pain control. Increased Oxycotin to 30mg bid and will alternate muscle relaxers, Robaxin and Valium every 4 hours as muscle spasms, seem to be increasing the pain -pharmacy pain cs ordered - home pain meds increased already -Call NS with any questions or neuro changes -D/w Dr Abreu Subjective: low back pain and spasms pain -06/17 Objective: AAO x MAEx4 Motor 5/5 BUE/BLE Incision dressed cdi JPx1 Bruno in Catheter Insertion Date: 02/26/18 - Physician Discussed Patient with : Brady Neurosurgery Physical Exam - Vitals, I&O, Labs I and O 02/27/18 02/28/18 03/01/18 05:59 05:59 05:59 Intake Total 5050 5460 Output Total 5602 8835 Balance -555 -3375 Weight 111.13 kg Intake: Oral (ml) 1600 4300 IV Intake (ml) 3450 IV Infused (ml) 1160 Dexmedetomidine HCl 400 860 mcg In Ns 100 ml @ Per Protocol IV CONT [facility]INATA Rx#: [id number] ceFAZolin 2 gm In Ns 100 300 ml @ 200 mls/hr IV Q8H [facility] Rx#:[id number] Output: Urine (ml) 3800 8500 Catheter 3800 8500 Estimated Blood Loss (ml) 800 VANESSA Drain Output (ml) 1005 335 Back Henri Malin 1005 335 Other: Intake Quantity Yes Sufficient Vital Signs Temp Pulse Resp BP Pulse Ox 36.6 C 75 22 H 156/90 H 100 02/28/18 03:46 02/28/18 03:46 02/28/18 03:46 02/28/18 03:46 02/28/18 03:46 Laboratory Results 02/27/18 04:56 02/27/18 17:45 ICD10 Worksheet Patient Problems: Problems Problem Status Onset Arthrodesis status Acute Inadvertent durotomy Acute Lumbar radicular pain Acute Lumbar stenosis Acute
[2018-02-28] MEDS: ATORVASTATIN CALCIUM 40 MG TAB PO SCH (08:28)
[2018-02-28] MEDS: NEBIVOLOL HCL 5 MG TAB PO SCH (08:28)
[2018-02-28] MEDS: oxyCODONE CR 30 MG TAB PO SCH ×2 (08:28→20:13)
[2018-02-28] MEDS: LOSARTAN POTASSIUM 50 MG TAB PO SCH (08:28)
[2018-02-28] MEDS: SENNOSIDES/DOCUSATE SODIUM TAB PO SCH ×2 (08:28→20:54)
[2018-02-28] MEDS: CETIRIZINE 10 MG TAB PO SCH (08:28)
[2018-02-28] MEDS: POLYETHYLENE GLYCOL 3350 17 GM PKT PO SCH ×3 (08:28→20:53)
[2018-02-28] MEDS: buPROPion XL 150 MG TAB PO SCH (08:29)
[2018-02-28] MEDS: FAMOTIDINE 20 MG TAB PO SCH ×2 (08:29→20:12)
[2018-02-28] MEDS: HYDROCHLOROTHIAZIDE 25 MG TAB PO SCH (08:29)
[2018-02-28] MEDS: ENOXAPARIN 40 MG/0.4 ML SYR SC SCH (08:29)
[2018-02-28] MEDS: valACYclovir 500 MG TAB PO SCH (08:38)
[2018-02-28] MEDS: MAGNESIUM HYDROXIDE 30 ML UDCUP PO PRN (09:49)
--- NOTE | 2018-02-28 15:19 | PDINTPN ---
Subscription Crew Leader Progress Note Assessment/Plan: Assessment/plan: 47 M with chronic lumbar stenosis and pain issues s/p L3-L5 laminectomy with TLIF/PSF complicated by CSF leak. He has remained stable postop, but has had difficulty with pain control given his long history of opiate tolerance. He also has a history of HTN and anxiety. * s/p back surgery with CSF leak. Will require supine position until sunday * pain control- robaxin and valium added to precedex and opiates today * constipation- started bowel protocol * anxiety- continue outpatient meds. Subjective: pain less-well controlled today after moving Objective: Vital Signs Temp Pulse Resp BP Pulse Ox 36.7 C 77 14 131/74 H 97 02/28/18 08:00 02/28/18 12:00 02/28/18 12:00 02/28/18 12:00 02/28/18 12:00 Laboratory Results 02/27/18 04:56 02/27/18 17:45 02/27/18 02/28/18 03/01/18 05:59 05:59 05:59 Intake Total 5050 5460 Output Total 5605 8835 45 Balance -555 -3375 -45 PT 13.7 SEC (12.0-15.0) 02/27/18 04:56 INR 1.03 (0.83-1.16) 02/27/18 04:56 Physical Exam - Physical Exam General Appearance: alert, no apparent distress, obese EENT: PERRL/EOMI Neck: supple Respiratory: lungs clear, normal breath sounds, No respiratory distress, No accessory muscle use Cardiac/Chest: regular rate, rhythm, No edema Abdomen: non-tender, soft, No normal bowel sounds, No distended Skin: normal color, warm/dry, No cyanosis Lymphatic: no adenopathy Extremities: No pedal edema Neuro/Psych: alert, normal mood/affect, oriented x 3 ICD10 Worksheet Patient Problems: Problems Problem Status Onset Arthrodesis status Acute Inadvertent durotomy Acute Lumbar radicular pain Acute Lumbar stenosis Acute
[2018-03-01] MEDS: DIAZEPAM 5 MG TAB PO PRN ×4 (00:37→20:28)
[2018-03-01] MEDS: oxyCODONE IR 15 MG TAB PO PRN ×4 (00:37→18:03)
[2018-03-01] MEDS: DEXMEDETOMIDINE HCL 1,000 MCG in NS 250 ML IV SCH ×2 (04:17→11:43)
[2018-03-01] MEDS: PROMETHAZINE HCL 25 MG/ML INJ IVP PRN (04:17)
[2018-03-01] MEDS: HYDROmorphONE/DILAUDID 1 MG/ML INJ IVP PRN ×3 (04:17→21:16)
[2018-03-01] MEDS: METHOCARBAMOL 750 MG TAB PO SCH ×4 (06:12→20:28)
[2018-03-01] MEDS: ACETAMINOPHEN 500 MG TAB PO SCH ×3 (06:13→21:27)
[2018-03-01] MEDS: SENNOSIDES/DOCUSATE SODIUM TAB PO SCH ×2 (07:59→20:28)
[2018-03-01] MEDS: ATORVASTATIN CALCIUM 40 MG TAB PO SCH (08:00)
[2018-03-01] MEDS: LOSARTAN POTASSIUM 50 MG TAB PO SCH (08:00)
[2018-03-01] MEDS: CETIRIZINE 10 MG TAB PO SCH (08:00)
[2018-03-01] MEDS: NEBIVOLOL HCL 5 MG TAB PO SCH (08:01)
[2018-03-01] MEDS: HYDROCHLOROTHIAZIDE 25 MG TAB PO SCH (08:01)
[2018-03-01] MEDS: buPROPion XL 150 MG TAB PO SCH (08:01)
[2018-03-01] MEDS: oxyCODONE CR 30 MG TAB PO SCH (08:02)
[2018-03-01] MEDS: FAMOTIDINE 20 MG TAB PO SCH ×2 (08:02→20:28)
[2018-03-01] MEDS: ENOXAPARIN 40 MG/0.4 ML SYR SC SCH (08:02)
[2018-03-01] MEDS: POLYETHYLENE GLYCOL 3350 17 GM PKT PO SCH ×3 (08:05→21:30)
--- NOTE | 2018-03-01 08:54 | NEUSURGPN ---
Assessment/Plan: Assessment: 47 yo M s/p L3-5 laminectomy, L4/5 TLIF and L4/5 PSF POD #2 Plan: -CSF leak: Flat in bed, ok for 1 pillow under head, pillows under knees. No reverse trend. Raise HOB Sunday AM -TEDs, SCDs, lovenox -Brace to be worn once he is OOB/ambulatory -Post op xrays once ambulatory -Maintain bruno due to immobility -Dc VANESSA drain -SDU for precedex/pain control. Increased Oxycotin to 40mg bid continue to alternate muscle relaxers, Robaxin and Valium every 4 hours as muscle spasms, seem to be increasing the pain -pharmacy pain cs ordered -Call NS with any questions or neuro changes -Seen with Dr Abreu Subjective: pain improved since yesterday, but still requiring precedex Objective: AAO x 4 MAEx4 Motor 5/5 BUE/BLE Incision dressed cdi, flat JPx1 Bruno in Catheter Insertion Date: 02/26/18 - Physician Patient Seen by : Brady Neurosurgery Physical Exam - Vitals, I&O, Labs I and O 02/28/18 03/01/18 03/02/18 05:59 05:59 05:59 Intake Total 5460 3298 Output Total 8835 5408 Balance -3375 -2110 Intake: Oral (ml) 4300 2500 IV Infused (ml) 1160 798 Dexmedetomidine HCl 1,000 392 mcg In Ns 250 ml @ Per Protocol IV CONT [facility] Rx#: [id number] Dexmedetomidine HCl 400 860 406 mcg In Ns 100 ml @ Per Protocol IV CONT AMINATA Rx#: [id number] ceFAZolin 2 gm In Ns 100 300 ml @ 200 mls/hr IV Q8H [facility] Rx#:[id number] Output: Urine (ml) 8500 5300 Catheter 8500 5300 VANESSA Drain Output (ml) 335 108 Back Henri Malin 335 108 Other: Intake Quantity Yes Sufficient Number of Stools Bedpan 1 Vital Signs Temp Pulse Resp BP Pulse Ox 36.8 C 78 14 133/66 H 94 03/01/18 08:00 03/01/18 08:00 03/01/18 08:00 03/01/18 08:00 03/01/18 08:00 Laboratory Results 02/27/18 04:56 02/27/18 17:45 ICD10 Worksheet Patient Problems: Problems Problem Status Onset Arthrodesis status Acute Inadvertent durotomy Acute Lumbar radicular pain Acute Lumbar stenosis Acute
[2018-03-01] MEDS: valACYclovir 500 MG TAB PO SCH (09:31)
--- NOTE | 2018-03-01 11:59 | PDINTPN ---
Sdc Teacher Progress Note Assessment/Plan: Assessment/plan: 47 M with chronic lumbar stenosis and pain issues s/p L3-L5 laminectomy with TLIF/PSF complicated by CSF leak. He has remained stable postop, but has had difficulty with pain control given his long history of opiate tolerance. He also has a history of HTN and anxiety. * s/p back surgery with CSF leak. Will require supine position until sunday * pain control- robaxin and valium added to precedex and opiates today. Pharmacy pain consult managing * constipation- started bowel protocol * anxiety- continue outpatient meds. 03/01/18 11:58 Subjective: No events. Reports better pain control today Objective: Vital Signs Temp Pulse Resp BP Pulse Ox 36.8 C 78 14 133/66 H 94 03/01/18 08:00 03/01/18 08:00 03/01/18 08:00 03/01/18 08:00 03/01/18 08:00 Laboratory Results 02/27/18 04:56 02/27/18 17:45 02/28/18 03/01/18 03/02/18 05:59 05:59 05:59 Intake Total 5460 3298 Output Total 8835 5408 Balance -3375 -2110 PT 13.7 SEC (12.0-15.0) 02/27/18 04:56 INR 1.03 (0.83-1.16) 02/27/18 04:56 Physical Exam - Physical Exam General Appearance: alert, no apparent distress, obese EENT: PERRL/EOMI Neck: supple Cardiac/Chest: regular rate, rhythm, No edema Abdomen: non-tender, soft, No distended Skin: normal color, warm/dry, No cyanosis Lymphatic: no adenopathy Extremities: No pedal edema Neuro/Psych: alert, normal mood/affect, oriented x 3 ICD10 Worksheet Patient Problems: Problems Problem Status Onset Arthrodesis status Acute Inadvertent durotomy Acute Lumbar radicular pain Acute Lumbar stenosis Acute
--- NOTE | 2018-03-01 14:40 | ASMTCMCOM ---
CM Note CM Note Notes: Patient has a dural tear and will have to lay flat until Sunday. Therapies will not be able to work with patient until next week. D/C plan TBD. CM will follow. Date Signed: 03/01/2018 02:39 PM Electronically Signed By:Valentina Boateng LCSW
[2018-03-02] MEDS: oxyCODONE IR 15 MG TAB PO PRN ×5 (00:21→20:39)
[2018-03-02] MEDS: DEXMEDETOMIDINE HCL 1,000 MCG in NS 250 ML IV SCH ×3 (01:35→21:39)
[2018-03-02] MEDS: HYDROmorphONE/DILAUDID 1 MG/ML INJ IVP PRN ×3 (04:36→17:51)
[2018-03-02] MEDS: METHOCARBAMOL 750 MG TAB PO SCH ×4 (05:57→20:38)
[2018-03-02] MEDS: ACETAMINOPHEN 500 MG TAB PO SCH ×3 (05:58→20:39)
[2018-03-02] MEDS: DIAZEPAM 5 MG TAB PO PRN ×2 (07:36→17:23)
[2018-03-02] MEDS: ATORVASTATIN CALCIUM 40 MG TAB PO SCH (08:28)
[2018-03-02] MEDS: HYDROCHLOROTHIAZIDE 25 MG TAB PO SCH (08:28)
[2018-03-02] MEDS: CETIRIZINE 10 MG TAB PO SCH (08:28)
[2018-03-02] MEDS: buPROPion XL 150 MG TAB PO SCH (08:28)
[2018-03-02] MEDS: FAMOTIDINE 20 MG TAB PO SCH ×2 (08:28→20:38)
[2018-03-02] MEDS: ENOXAPARIN 40 MG/0.4 ML SYR SC SCH (08:29)
[2018-03-02] MEDS: NEBIVOLOL HCL 5 MG TAB PO SCH (08:29)
[2018-03-02] MEDS: SENNOSIDES/DOCUSATE SODIUM TAB PO SCH ×2 (08:29→20:38)
[2018-03-02] MEDS: LOSARTAN POTASSIUM 50 MG TAB PO SCH (09:10)
--- NOTE | 2018-03-02 09:18 | SOAPPROG ---
SOAP Progress Note Assessment/Plan: Assessment: 47 yo M POD #4 L3-5 laminectomy complicated by csf leak Plan: neuro: stable and doing well overall HOB flat with bedrest until Sunday 03/04 scd/khris/lovenox for dvt prophylaxis please call with neuro changes discussed with Dr Campbell 03/02/18 09:16 Subjective: back pain improving, no leg pain, no weakness. Objective: Vital Signs Temp Pulse Resp BP Pulse Ox 36.7 C 78 16 109/55 L 99 03/02/18 07:33 03/02/18 08:29 03/02/18 07:33 03/02/18 08:29 03/02/18 07:33 Laboratory Results 02/27/18 04:56 02/27/18 17:45 03/01/18 03/02/18 03/03/18 05:59 05:59 05:59 Intake Total 3298 1563 Output Total 5408 3515 4000 Balance -2110 -1952 -4000 PT 13.7 SEC (12.0-15.0) 02/27/18 04:56 INR 1.03 (0.83-1.16) 02/27/18 04:56 AAOx4, +FC PERRL, EOMI, no facial droop 5/5 + light touch C/D/I ICD10 Worksheet Patient Problems: Problems Problem Status Onset Arthrodesis status Acute Inadvertent durotomy Acute Lumbar radicular pain Acute Lumbar stenosis Acute
[2018-03-02] MEDS: valACYclovir 500 MG TAB PO SCH (09:26)
[2018-03-02] MEDS: POLYETHYLENE GLYCOL 3350 17 GM PKT PO SCH ×3 (09:26→20:40)
--- NOTE | 2018-03-02 13:28 | PDINTPN ---
Child Welfare Consultant Progress Note Assessment/Plan: Assessment/plan: 47 M with chronic lumbar stenosis and pain issues s/p L3-L5 laminectomy with TLIF/PSF complicated by CSF leak. He has remained stable postop, but has had difficulty with pain control given his long history of opiate tolerance. He also has a history of HTN and anxiety. * s/p back surgery with CSF leak. Will require supine position until sunday * pain control- robaxin and valium added to precedex and opiates. Pharmacy pain consult managing with better control * constipation- started bowel protocol * anxiety- continue outpatient meds. Subjective: no events Objective: Vital Signs Temp Pulse Resp BP Pulse Ox 36.7 C 77 12 105/57 L 97 03/02/18 07:33 03/02/18 11:42 03/02/18 11:42 03/02/18 12:00 03/02/18 11:42 Laboratory Results 02/27/18 04:56 02/27/18 17:45 03/01/18 03/02/18 03/03/18 05:59 05:59 05:59 Intake Total 3298 1563 700 Output Total 5408 3515 4000 Balance -2110 -1952 -3300 PT 13.7 SEC (12.0-15.0) 02/27/18 04:56 INR 1.03 (0.83-1.16) 02/27/18 04:56 Physical Exam - Physical Exam General Appearance: alert, no apparent distress, obese EENT: PERRL/EOMI Neck: supple Respiratory: lungs clear, normal breath sounds, No respiratory distress, No accessory muscle use Cardiac/Chest: regular rate, rhythm, No edema Abdomen: non-tender, soft, No distended Skin: normal color, warm/dry, No cyanosis Lymphatic: no adenopathy Extremities: No pedal edema Neuro/Psych: alert, normal mood/affect, oriented x 3 ICD10 Worksheet Patient Problems: Problems Problem Status Onset Arthrodesis status Acute Inadvertent durotomy Acute Lumbar radicular pain Acute Lumbar stenosis Acute
[2018-03-02] MEDS: MAGNESIUM HYDROXIDE 30 ML UDCUP PO PRN (20:40)
[2018-03-02] MEDS: PROMETHAZINE HCL 25 MG/ML INJ IVP PRN (21:43)
[2018-03-03] MEDS: DEXMEDETOMIDINE HCL 1,000 MCG in NS 250 ML IV SCH ×2 (03:44→14:29)
[2018-03-03] MEDS: ACETAMINOPHEN 500 MG TAB PO SCH ×3 (05:30→22:22)
[2018-03-03] MEDS: METHOCARBAMOL 750 MG TAB PO SCH ×3 (05:30→16:33)
--- NOTE | 2018-03-03 06:45 | SOAPPROG ---
SOAP Progress Note Assessment/Plan: Assessment: 47 yo M POD #5 L3-5 laminectomy complicated by csf leak Plan: neuro: stable and doing well overall HOB flat with bedrest until Sunday 03/04 scd/khris/lovenox for dvt prophylaxis please call with neuro changes discussed with Dr Campbell 03/02/18 09:16 03/03/18 06:45 Subjective: no headaches, continued back pain. some pain in right groin Objective: Vital Signs Temp Pulse Resp BP Pulse Ox 37.6 C 72 16 101/54 L 92 03/02/18 19:57 03/03/18 05:37 03/03/18 03:44 03/03/18 03:44 03/03/18 03:44 Laboratory Results 02/27/18 04:56 02/27/18 17:45 03/02/18 03/03/18 03/04/18 05:59 05:59 05:59 Intake Total 1563 5139 Output Total 3515 47468 Balance -1951 -61 PT 13.7 SEC (12.0-15.0) 02/27/18 04:56 INR 1.03 (0.83-1.16) 02/27/18 04:56 AAOx4, +FC PERRL, EOMI, no facial droop GABRIELLA x 4 + light touch C/D/I ICD10 Worksheet Patient Problems: Problems Problem Status Onset Arthrodesis status Acute Inadvertent durotomy Acute Lumbar radicular pain Acute Lumbar stenosis Acute
[2018-03-03] MEDS: oxyCODONE IR 15 MG TAB PO PRN ×4 (07:40→20:33)
[2018-03-03] MEDS: DIAZEPAM 5 MG TAB PO PRN ×3 (07:40→22:22)
[2018-03-03] MEDS: HYDROmorphONE/DILAUDID 1 MG/ML INJ IVP PRN ×5 (09:01→22:22)
[2018-03-03] MEDS: ENOXAPARIN 40 MG/0.4 ML SYR SC SCH (09:03)
[2018-03-03] MEDS: SENNOSIDES/DOCUSATE SODIUM TAB PO SCH ×2 (09:03→20:33)
[2018-03-03] MEDS: ATORVASTATIN CALCIUM 40 MG TAB PO SCH (09:03)
[2018-03-03] MEDS: POLYETHYLENE GLYCOL 3350 17 GM PKT PO SCH ×3 (09:03→22:27)
[2018-03-03] MEDS: buPROPion XL 150 MG TAB PO SCH (09:04)
[2018-03-03] MEDS: FAMOTIDINE 20 MG TAB PO SCH ×2 (09:04→20:33)
[2018-03-03] MEDS: CETIRIZINE 10 MG TAB PO SCH (09:04)
[2018-03-03] MEDS: NEBIVOLOL HCL 5 MG TAB PO SCH (09:04)
[2018-03-03] MEDS: HYDROCHLOROTHIAZIDE 25 MG TAB PO SCH (09:04)
[2018-03-03] MEDS: valACYclovir 500 MG TAB PO SCH (09:07)
[2018-03-03] MEDS: LOSARTAN POTASSIUM 50 MG TAB PO SCH (11:41)
[2018-03-03] MEDS: LACTULOSE 20 GM/30 ML UDCUP PO PRN (15:20)
[2018-03-03] MEDS: METHOCARBAMOL 500 MG TAB PO SCH (20:30)
[2018-03-03] MEDS: ONDANSETRON 4 MG/2 ML VIAL IVP PRN (23:41)
[2018-03-04] MEDS: HYDROmorphONE/DILAUDID 1 MG/ML INJ IVP PRN ×8 (00:28→23:21)
[2018-03-04] MEDS: oxyCODONE IR 15 MG TAB PO PRN ×2 (00:28→20:12)
[2018-03-04] MEDS: ONDANSETRON 4 MG/2 ML VIAL IVP PRN ×4 (03:56→16:08)
[2018-03-04] MEDS: DEXMEDETOMIDINE HCL 1,000 MCG in NS 250 ML IV SCH ×2 (04:54→23:21)
[2018-03-04] MEDS: PROMETHAZINE HCL 25 MG/ML INJ IVP PRN ×2 (05:06→23:21)
[2018-03-04] MEDS: METHOCARBAMOL 500 MG TAB PO SCH ×4 (05:09→21:35)
[2018-03-04] MEDS: ACETAMINOPHEN 500 MG TAB PO SCH ×3 (06:00→21:36)
--- NOTE | 2018-03-04 10:58 | SOAPPROG ---
SOAP Progress Note Assessment/Plan: Assessment: 47 yo M POD #5 L3-5 laminectomy complicated by csf leak Plan: neuro: was doing well yesterday, worsening back pain and headaches. patient has headaches when flat with chills. Will re try advancing activity and will check CBC, BMP continue to advance activity as tolerated some problems urinating this am, will check PVR scd/khris/lovenox for dvt prophylaxis please call with neuro changes discussed with Dr Campbell 03/02/18 09:16 03/03/18 06:45 03/04/18 10:56 Subjective: horrible headache this am, back spasms worse with sitting, minimal leg pain Objective: Vital Signs Temp Pulse Resp BP Pulse Ox 37.2 C 79 12 111/75 93 03/04/18 07:47 03/04/18 07:47 03/04/18 07:47 03/04/18 07:47 03/04/18 07:47 Laboratory Results 02/27/18 04:56 02/27/18 17:45 03/03/18 03/04/18 03/05/18 05:59 05:59 05:59 Intake Total 5139 4996 Output Total 49890 3075 Balance -6161 1921 PT 13.7 SEC (12.0-15.0) 02/27/18 04:56 INR 1.03 (0.83-1.16) 02/27/18 04:56 AAOx4, +FC PERRL, EOMI 5/5 + light touch C/D/I ICD10 Worksheet Patient Problems: Problems Problem Status Onset Arthrodesis status Acute Inadvertent durotomy Acute Lumbar radicular pain Acute Lumbar stenosis Acute
[2018-03-04] MEDS ORDERED: HYDROmorphONE/DILAUDID 1 MG/ML INJ IVP ONE (11:00)
--- NOTE | 2018-03-04 11:07 | PDINTPN ---
[employer] Worker Progress Note Assessment/Plan: Assessment/plan: 47 M with chronic lumbar stenosis and pain issues s/p L3-L5 laminectomy with TLIF/PSF complicated by CSF leak. He has remained stable postop, but has had difficulty with pain control given his long history of opiate tolerance. He also has a history of HTN and anxiety. * s/p back surgery with CSF leak. Started upright and ambulation, c/o RIOS when supine. Neuro eval underway * pain control- robaxin and valium added to precedex and opiates. Pharmacy pain consult managing with better control * constipation- started bowel protocol * anxiety- continue outpatient meds. 03/04/18 11:06 Subjective: increased mobility, but less optimal pain control Objective: Vital Signs Temp Pulse Resp BP Pulse Ox 37.2 C 79 12 111/75 93 03/04/18 07:47 03/04/18 07:47 03/04/18 07:47 03/04/18 07:47 03/04/18 07:47 Laboratory Results 02/27/18 04:56 02/27/18 17:45 03/03/18 03/04/18 03/05/18 05:59 05:59 05:59 Intake Total 5139 4996 Output Total 32142 3075 Balance -6161 1921 PT 13.7 SEC (12.0-15.0) 02/27/18 04:56 INR 1.03 (0.83-1.16) 02/27/18 04:56 Physical Exam - Physical Exam General Appearance: alert, no apparent distress, obese EENT: PERRL/EOMI Neck: supple Respiratory: lungs clear, normal breath sounds, No respiratory distress, No accessory muscle use Cardiac/Chest: regular rate, rhythm, No edema Abdomen: non-tender, soft, No distended Skin: normal color, warm/dry, No cyanosis Lymphatic: no adenopathy Extremities: No pedal edema Neuro/Psych: alert, normal mood/affect, oriented x 3 ICD10 Worksheet Patient Problems: Problems Problem Status Onset Arthrodesis status Acute Inadvertent durotomy Acute Lumbar radicular pain Acute Lumbar stenosis Acute
[2018-03-04] MEDS: SENNOSIDES/DOCUSATE SODIUM TAB PO SCH ×2 (11:14→21:35)
[2018-03-04] MEDS: buPROPion XL 150 MG TAB PO SCH (11:14)
[2018-03-04] MEDS: ATORVASTATIN CALCIUM 40 MG TAB PO SCH (11:14)
[2018-03-04] MEDS: POLYETHYLENE GLYCOL 3350 17 GM PKT PO SCH ×3 (11:14→21:36)
[2018-03-04] MEDS: NEBIVOLOL HCL 5 MG TAB PO SCH (11:15)
[2018-03-04] MEDS: CETIRIZINE 10 MG TAB PO SCH (11:16)
[2018-03-04] MEDS: HYDROCHLOROTHIAZIDE 25 MG TAB PO SCH (11:17)
[2018-03-04] MEDS: LOSARTAN POTASSIUM 50 MG TAB PO SCH (11:19)
[2018-03-04] MEDS: valACYclovir 500 MG TAB PO SCH (11:23)
[2018-03-04] MEDS: FAMOTIDINE 20 MG TAB PO SCH ×2 (11:23→21:35)
[2018-03-04] MEDS: ENOXAPARIN 40 MG/0.4 ML SYR SC SCH (11:34)
[2018-03-04] MEDS: DIAZEPAM 5 MG TAB PO PRN (12:28)
[2018-03-04] MEDS: TAMSULOSIN HCL 0.4 MG CAP PO SCH (15:57)
[2018-03-04] MEDS ORDERED: DIAZEPAM 5 MG TAB PO ONE (17:30)
[2018-03-04] MEDS ORDERED: HYDROmorphONE/DILAUDID 2 MG/ML INJ ONE (20:31)
[2018-03-04] MEDS ORDERED: GADOBUTROL 10 ML VIAL IVP ONE (20:50)
[2018-03-05] MEDS: oxyCODONE IR 15 MG TAB PO PRN ×5 (04:40→22:10)
[2018-03-05] MEDS: DIAZEPAM 5 MG TAB PO PRN ×3 (04:40→20:02)
[2018-03-05] MEDS: METHOCARBAMOL 500 MG TAB PO SCH ×4 (06:01→20:02)
[2018-03-05] MEDS: ACETAMINOPHEN 500 MG TAB PO SCH ×3 (06:03→20:02)
--- NOTE | 2018-03-05 08:35 | NEUSURGPN ---
Date of Surgery: 02/26/18 Post Op Day: 7 Assessment/Plan: Assessment: 47 yo M POD #7 L3-5 laminectomy, L4-5 TLIF with PSF L3-L5 complicated by csf leak and primary repair Plan: -was doing well Sunday, worsening headache with ambulation yesterday and post void residual of 700ml. MRI performed not suggestive of active CSF leak or compressive lesion. -raised HOB to 20-30 degrees this am, will continue to monitor. Ok to get oob to shower if tolerating -will try to avoid IV Dilaudid if possible, added Fioricet for headaches -leave bruno in for now related to acute urinary retention -Checking bmp this am, na yesterday was 132 -scd/khris/lovenox for dvt prophylaxis, hold this am lovenox until plan is established -discussed patient with Dr Abreu and Dr Amin reviewed MRI as well -please call with neuro changes Subjective: denies headache at this time, back feels good Objective: AxO x3 5/5 BUE, BLE Sensation intact BLE Incision CDI, sutures in place Neuro Check Frequency: per routine Urinary Catheter in Place: Yes Urinary Catheter Indication: Acute Urinary Retention Catheter Insertion Date: 02/26/18 - Physician Discussed Patient with : [facility] Neurosurgery Physical Exam - Vitals, I&O, Labs I and O 03/04/18 03/05/18 03/06/18 05:59 05:59 05:59 Intake Total 4996 2742 Output Total 3075 3170 Balance 1921 -428 Intake: Oral (ml) 4500 2400 IV Infused (ml) 496 342 Dexmedetomidine HCl 1,000 496 342 mcg In Ns 250 ml @ Per Protocol IV CONT [facility] Rx#: [id number] Output: Urine (ml) 3075 3120 Catheter 1999 2900 Urinal 1075 220 Emesis (ml) 50 Other: Number of Voids Urinal 1 Number of Stools Bedpan 1 Toilet 1 Urinal 1 Bladder Scan Volume (ml) Urinal 200 Post Void Residual Scan Volume (ml) Urinal 660 Vital Signs Temp Pulse Resp BP Pulse Ox 37.3 C 65 16 107/56 L 98 03/04/18 19:25 03/05/18 08:15 03/05/18 08:15 03/05/18 08:15 03/05/18 08:15 Laboratory Results 03/04/18 11:40 ICD10 Worksheet Patient Problems: Problems Problem Status Onset Arthrodesis status Acute Inadvertent durotomy Acute Lumbar radicular pain Acute Lumbar stenosis Acute
[2018-03-05] MEDS: valACYclovir 500 MG TAB PO SCH (09:17)
[2018-03-05] MEDS: SENNOSIDES/DOCUSATE SODIUM TAB PO SCH ×2 (09:17→20:02)
[2018-03-05] MEDS: CETIRIZINE 10 MG TAB PO SCH (09:18)
[2018-03-05] MEDS: FAMOTIDINE 20 MG TAB PO SCH ×2 (09:18→20:03)
[2018-03-05] MEDS: ATORVASTATIN CALCIUM 40 MG TAB PO SCH (09:18)
[2018-03-05] MEDS: buPROPion XL 150 MG TAB PO SCH (09:18)
[2018-03-05] MEDS: TAMSULOSIN HCL 0.4 MG CAP PO SCH (09:18)
[2018-03-05] MEDS: NEBIVOLOL HCL 5 MG TAB PO SCH (09:19)
[2018-03-05] MEDS: HYDROCHLOROTHIAZIDE 25 MG TAB PO SCH (09:19)
[2018-03-05] MEDS: POLYETHYLENE GLYCOL 3350 17 GM PKT PO SCH ×4 (09:19→20:04)
[2018-03-05] MEDS: DEXMEDETOMIDINE HCL 1,000 MCG in NS 250 ML IV SCH (09:19)
[2018-03-05] MEDS: LOSARTAN POTASSIUM 50 MG TAB PO SCH ×2 (09:39→17:35)
[2018-03-05] MEDS: ENOXAPARIN 40 MG/0.4 ML SYR SC SCH ×2 (09:39→10:27)
[2018-03-05] MEDS: ACET/CAFFEINE/BUTA FIORICET 1 EACH TAB PO PRN ×2 (11:41→17:35)
--- NOTE | 2018-03-05 12:50 | ASMTCMCOM ---
CM Note CM Note Notes: Patient's RISO better. He has a Hx of chronic pain and narc dependency. Therapies to eval for possible D/C needs. CM to follow. Date Signed: 03/05/2018 12:49 PM Electronically Signed By:Charmaine Shell LCSW
--- NOTE | 2018-03-05 14:09 | PDINTPN ---
[facility] Progress Note Assessment/Plan: Assessment/Plan: 47 M with chronic lumbar stenosis and pain issues s/p L3-L5 laminectomy with TLIF/PSF complicated by CSF leak. He has remained stable postop, but has had difficulty with pain control given his long history of opiate tolerance. He also has a history of HTN and anxiety. * s/p back surgery with CSF leak. Had increased pain yesterday, so back in bed. Started to get up again today and seems to be doing well. * pain control- robaxin and valium added to precedex and opiates. Pharmacy pain consult managing with better control * constipation- improving, on bowel protocol. Positive BM. * anxiety- continue outpatient meds. * Metabolic: No issues identified. Sodium 138 today. * Prophylaxis: On Lovenox and famotidine. Continue care in the intensive care unit as a step-down patient. Continue pain control and anxiolytics. Gradually increase mobilization. Follow laboratory intermittently. Subjective: Doing better, up in bathroom. Pain seems better controlled. Objective: Vital Signs Temp Pulse Resp BP Pulse Ox 37.3 C 75 13 126/68 H 97 03/04/18 19:25 03/05/18 11:40 03/05/18 11:40 03/05/18 11:40 03/05/18 11:40 Laboratory Results 03/04/18 11:40 03/05/18 08:05 03/04/18 03/05/18 03/06/18 05:59 05:59 05:59 Intake Total 4996 2742 500 Output Total 3075 3170 975 Balance 7507 -864 -164 PT 13.7 SEC (12.0-15.0) 02/27/18 04:56 INR 1.03 (0.83-1.16) 02/27/18 04:56 Physical Exam - Physical Exam General Appearance: alert, no apparent distress EENT: other (On room air) Neck: normal inspection Respiratory: lungs clear, decreased breath sounds (At bases) Cardiac/Chest: regular rate, rhythm Abdomen: non-tender, soft, No normal bowel sounds (Decreased, present) Male Genitalia: other (Catheter in place for urinary retention.) Back: Other (Status post surgery, VANESSA drain in place) Skin: normal color, warm/dry Extremities: No pedal edema Neuro/Psych: no motor/sensory deficits, No cognition abnormalities ICD10 Worksheet Patient Problems: Problems Problem Status Onset Lumbar stenosis Acute Lumbar radicular pain Acute Arthrodesis status Acute Inadvertent durotomy Acute
[2018-03-05] MEDS ORDERED: traZODone 50 MG TAB PO PRN (16:17)
[2018-03-05] MEDS: ONDANSETRON DISINTEGRATING 4 MG TAB PO PRN (17:22)
[2018-03-05] MEDS: HYDROmorphONE/DILAUDID 1 MG/ML INJ IVP PRN (18:03)
[2018-03-05] MEDS: PROMETHAZINE HCL 25 MG/ML INJ IVP PRN (22:18)
[2018-03-06] MEDS: oxyCODONE IR 15 MG TAB PO PRN ×2 (04:08→11:20)
[2018-03-06] MEDS: DIAZEPAM 5 MG TAB PO PRN ×2 (04:08→13:22)
[2018-03-06] MEDS: ACETAMINOPHEN 500 MG TAB PO SCH (05:45)
[2018-03-06] MEDS: METHOCARBAMOL 500 MG TAB PO SCH ×2 (05:45→11:43)
--- NOTE | 2018-03-06 07:33 | NEUSURGPN ---
Date of Surgery: 02/26/18 Post Op Day: 8 Assessment/Plan: Assessment: 47 yo M POD #8 L3-5 laminectomy, L4-5 TLIF with PSF L3-L5 complicated by csf leak and primary repair Plan: -was doing well Sunday, worsening headache with ambulation Sunday with post void residual of 700ml. MRI lumbar performed not suggestive of active CSF leak or compressive lesion. -OOB without headache yesterday until late afternoon then reported headache 6 of [address] performed which was negative. -bruno removed this am, ok to dc home pending ability to void -scd/khris/lovenox for dvt prophylaxis -discussed patient with Dr Abreu -please call with neuro changes Subjective: Sitting up in bed, denies headache Objective: AxO x3 PERRLA 5/5 BUE, BLE Sensation intact to light touch BLE Incision CDI with sutures Neuro Check Frequency: per routine Urinary Catheter in Place: No Catheter Insertion Date: 02/26/18 - Physician Discussed Patient with Dr.: Abreu Neurosurgery Physical Exam - Vitals, I&O, Labs I and O 03/05/18 03/06/18 03/07/18 05:59 05:59 05:59 Intake Total 2742 3500 Output Total 3170 3375 Balance -428 125 Intake: Oral (ml) 2400 3500 IV Infused (ml) 342 Dexmedetomidine HCl 1,000 342 mcg In Ns 250 ml @ Per Protocol IV CONT AMINATA Rx#: [id number] Output: Urine (ml) 3120 3375 Catheter 2900 3375 Urinal 220 Emesis (ml) 50 Other: Intake Quantity Yes Sufficient Number of Stools Toilet 1 Urinal 1 Bladder Scan Volume (ml) Urinal 200 Post Void Residual Scan Volume (ml) Urinal 660 Vital Signs Temp Pulse Resp BP Pulse Ox 37.3 C 74 13 132/71 H 93 03/06/18 04:00 03/06/18 04:00 03/06/18 04:00 03/06/18 04:00 03/06/18 04:00 Laboratory Results 03/04/18 11:40 03/05/18 08:05 ICD10 Worksheet Patient Problems: Problems Problem Status Onset Arthrodesis status Acute Inadvertent durotomy Acute Lumbar radicular pain Acute Lumbar stenosis Acute
[2018-03-06] MEDS: ONDANSETRON DISINTEGRATING 4 MG TAB PO PRN (08:18)
[2018-03-06] MEDS: TAMSULOSIN HCL 0.4 MG CAP PO SCH (08:22)
[2018-03-06] MEDS: HYDROCHLOROTHIAZIDE 25 MG TAB PO SCH (08:22)
[2018-03-06] MEDS: ENOXAPARIN 40 MG/0.4 ML SYR SC SCH (08:23)
[2018-03-06] MEDS: HYDROmorphONE/DILAUDID 1 MG/ML INJ IVP PRN (09:23)
[2018-03-06] MEDS: buPROPion XL 150 MG TAB PO SCH (09:41)
[2018-03-06] MEDS: FAMOTIDINE 20 MG TAB PO SCH (09:41)
[2018-03-06] MEDS: NEBIVOLOL HCL 5 MG TAB PO SCH (09:43)
[2018-03-06] MEDS: LOSARTAN POTASSIUM 50 MG TAB PO SCH (09:43)
[2018-03-06] MEDS: ATORVASTATIN CALCIUM 40 MG TAB PO SCH (09:43)
[2018-03-06] MEDS: CETIRIZINE 10 MG TAB PO SCH (09:44)
[2018-03-06] MEDS: POLYETHYLENE GLYCOL 3350 17 GM PKT PO SCH (09:49)
[2018-03-06] MEDS: SENNOSIDES/DOCUSATE SODIUM TAB PO SCH (09:49)
[2018-03-06] MEDS: valACYclovir 500 MG TAB PO SCH (09:50)
[2018-03-06] MEDS: PROMETHAZINE HCL 25 MG/ML INJ IVP PRN (11:18)
[2018-03-06] MEDS: ACET/CAFFEINE/BUTA FIORICET 1 EACH TAB PO PRN (11:42)
[2018-03-06 13:29] VITALS: BP 121/64
== END 2018-03-06 14:10 | disposition home or self-care (01) | DRG 454 ==
LOC: F3N 09:19 → F2N 17:54
PROVIDERS: ADMIT Neurological Surgery; ATTEND Neurological Surgery
PROC: 00NY0ZZ Release Lumbar Spinal Cord, Open Approach (ICD-10-PCS; principal; 2018-02-26 11:15)
PROC: 00Q20ZZ Repair Dura Mater, Open Approach (ICD-10-PCS; principal; 2018-02-26 11:15)
PROC: 00N20ZZ Release Dura Mater, Open Approach (ICD-10-PCS; principal; 2018-02-26 11:15)
PROC: 0SG0071 Fusion of Lumbar Vertebral Joint with Autologous Tissue Substitute, Posterior Approach, Posterior Column, Open Approach (ICD-10-PCS; principal; 2018-02-26 11:15)
PROC: 0ST20ZZ Resection of Lumbar Vertebral Disc, Open Approach (ICD-10-PCS; principal; 2018-02-26 11:15)
PROC: 01NB0ZZ Release Lumbar Nerve, Open Approach (ICD-10-PCS; principal; 2018-02-26 11:15)
PROC: 4A1004G Monitoring of Central Nervous Electrical Activity, Intraoperative, Open Approach (ICD-10-PCS; principal; 2018-02-26 11:15)
PROC: 8E0WXBF Computer Assisted Procedure of Trunk Region, With Fluoroscopy (ICD-10-PCS; principal; 2018-02-26 11:15)
PROC: 0SG00AJ Fusion of Lumbar Vertebral Joint with Interbody Fusion Device, Posterior Approach, Anterior Column, Open Approach (ICD-10-PCS; principal; 2018-02-26 11:15)
DX: M47.26 Other spondylosis with radiculopathy, lumbar region (principal); M48.062 Spinal stenosis, lumbar region with neurogenic claudication; M43.16 Spondylolisthesis, lumbar region; G97.41 Accidental puncture or laceration of dura during a procedure; I10 Essential (primary) hypertension; E78.5 Hyperlipidemia, unspecified; F41.9 Anxiety disorder, unspecified; F90.9 Attention-deficit hyperactivity disorder, unspecified type; K59.00 Constipation, unspecified
CPT/HCPCS: 97116-GP; 97161-GP; 97165-GO; 97535-GO; A9585; C1713; J0171; J0690; J1100; J1170; J1650; J2270; J2274; J2405; J2550; J2704; J3010; J3360; P9041

== ENCOUNTER → 2018-05-28 | Outpatient (CLI) | payer OTHER | LOC: FIMAGING 12:39 | PROVIDERS: ATTEND Neurological Surgery | DX: Z98.1 Arthrodesis status (principal); M51.36 Other intervertebral disc degeneration, lumbar region; M43.16 Spondylolisthesis, lumbar region ==

== ENCOUNTER → 2018-07-01 | Outpatient (CLI) | payer OTHER | LOC: FIMAGING 08:52 | PROVIDERS: ATTEND Physician Assistant | DX: Z98.1 Arthrodesis status (principal); M51.36 Other intervertebral disc degeneration, lumbar region; M43.16 Spondylolisthesis, lumbar region ==